=== PATIENT | female | born 1940 | race Caucasian/White ===

== ENCOUNTER → 2020-08-15 | Outpatient (CLI) | payer MEDICARE, BC ==
[~2020-08-15] MED LIST: ASPI-630 PO; CHOL500045 PO; CYAN100016 SL; LISI2.5T PO; NIAC500C PO
--- NOTE | 2020-08-15 14:17 | RAD ---
Examination: 1. Bilateral AP standing knees. 2. Right knee lateral and sunrise views. INDICATION: Right knee pain COMPARISON: None. FINDINGS: AP standing bilateral knees shows no fracture or malalignment. The lateral and sunrise views of the right knee show osteophytic spurring of the superior pole patell a is irregular articular surface on the medial aspect of the patella as well as along the lateral fac et. Osteophytic spurring is notable on the lateral femoral condyle. Soft tissues show chondrocalcinosis in the medial meniscus in the left greater than right knees. IMPRESSION: Degenerative changes in the right knee primarily involving the patellofemoral compartment. No fractur e or aggressive osseous lesion and no malalignment shown. Electronically signed by: Vel Aguero MD (08/15/2020 2:14 PM) [id number]
== END ==
LOC: DXRAD 13:31
PROVIDERS: ATTEND Orthopaedic Surgery
DX: M17.11 Unilateral primary osteoarthritis, right knee (principal)
CPT/HCPCS: 73560; 73565

== ENCOUNTER → 2020-10-21 | Outpatient (CLI) | payer MEDICARE, BC ==
--- NOTE | 2020-10-21 15:29 | RAD ---
EXAM: Bilateral knees, standing view; right knee, lateral view. HISTORY: Pain. COMPARISON: 08/15/2020 FINDINGS: A frontal standing view both knees and lateral view the right knee are obtained. There is a right knee arthroplasty in expected position. There are track davidson due to prior instrumentation wit hin the distal femur and proximal tibia. There is a small right knee effusion. There is minimal right knee soft tissue gas due to relative recent surgery. There is mild left genu valgus. IMPRESSION: Right knee arthroplasty in expected position. Electronically signed by: Leann Ross MD (10/21/2020 3:27 PM) [facility]
== END ==
LOC: DXRAD 12:37
PROVIDERS: ATTEND Physician Assistant
DX: M25.461 Effusion, right knee (principal); M21.062 Valgus deformity, not elsewhere classified, left knee; Z96.651 Presence of right artificial knee joint; Z98.890 Other specified postprocedural states
CPT/HCPCS: 73560; 73565

== ENCOUNTER 2020-10-27 16:36 | Emergency (ER) | payer MEDICARE, BC ==
[~2020-10-27] VITALS: Ht 152.4 cm; Wt 72.0 kg
[2020-10-27 16:36] VITALS: BP 132/79
--- NOTE | 2020-10-27 17:03 | PHYS DOC ---
Past History Past Surgical History: Knee Replacement (RICO JOINER MD) General Adult EDM: Chief Complaint: POST-OP PROBLEM HPI: HPI: 80-year-old female presents with right knee pain. The patient had knee replacement surgery about 2 weeks ago. Over the last 2 days, the swelling has gotten worse and today she has significantly more pain and feels like her calf is firm and much more swollen than that left leg. She is concerned about DVT. She did not call the surgeon's office. Patient denies cough, shortness of breath, dizziness, headache. She is on 2 full-strength aspirin daily, but no other anticoagulant or antiplatelet. (GRETTA MENA DO) Review of Systems: Review of Systems: Constitutional: Denies fever or chills Eyes: Denies change in visual acuity HENT: Denies nasal congestion or sore throat Respiratory: Denies cough or shortness of breath Cardiovascular: Denies chest pain or edema GI: Denies abdominal pain, nausea, vomiting, bloody stools or diarrhea : Denies dysuria Musculoskeletal: Right knee and lower leg pain with swelling Integument: Denies rash Neurologic: Denies headache, focal weakness or sensory changes Endocrine: Denies polyuria or polydipsia Lymphatic: Denies swollen glands Psychiatric: Denies depression or anxiety (GRETTA MENA DO) Allergies: Allergies: Allergies Coded Allergies Type Severity Reaction Last Updated Verified celecoxib Allergy Unknown Hives 05/25/14 Yes codeine Allergy Unknown UPSET STOMACH 05/25/14 Yes (GRETTA MENA DO) Physical Exam: PE: Constitutional: Well developed, well nourished, no acute distress, non-toxic appearance. [] HENT: Normocephalic, atraumatic, bilateral external ears normal, oropharynx moist, no oral exudates, nose normal. [] Eyes: PERRLA, EOMI, conjunctiva normal, no discharge. [] Neck: Normal range of motion, no tenderness, supple, no stridor. [] Cardiovascular: Heart rate regular rhythm, no murmur [] Lungs & Thorax: Bilateral breath sounds clear to auscultation [] Abdomen: Bowel sounds normal, soft, no tenderness, no masses, no pulsatile masses. [] Skin: Warm, dry, no erythema, no rash. [] Back: No tenderness, no CVA tenderness. [] Extremities: Right calf increased firmness in diameter compared to left, knee replacement surgical scar peers to be healing well, covered with Steri-Strips. Range of motion deferred. Tenderness to palpation of the posterior knee and calf. [] Neurologic: Alert and oriented X 3, normal motor function, normal sensory function, no focal deficits noted. [] Psychologic: Affect normal, judgement normal, mood normal. [] (GRETTA MENA DO) EKG: EKG: [] (GRETTA MENA DO) Radiology/Procedures: Radiology/Procedures: [] (GRETTA MENA DO) Radiology/Procedures: [address] [id number] IMAGING REPORT Signed PATIENT: CAMRYN KAUR EACCOUNT: [id number] : 1940 LOCATION: ER AGE: 80 SEX: F EXAM STATUS: REG ER ORD. PHYSICIAN: GRETTA MENA DO REASON: recent knee surgery, calf swelling, pain PROCEDURE: VENOUS LOWER EXTREMITY RIGHT Right lower extremity venous duplex Doppler ultrasound HISTORY: Recent knee surgery, right calf swelling and pain. FINDINGS: No DVT of the right common femoral vein, profunda femoral vein, superficial femoral vein or popliteal vein. There is noncompressible occlusive thrombus of the right posterior tibial peroneal veins in the calf. IMPRESSION: Occlusive DVT of segments of the posterior tibial and peroneal veins in the calf. FOR INTERNAL CODING PURPOSES Critical result: Findings discussed with Dr. Joiner at 10/27/2020 6:06 PM. RESULT CODE: (C) Electronically signed by: Yair Horta MD (10/27/2020 6:08 PM) [id number] DICTATED AND SIGNED BY: YAIR HORTA MD DATE: 10/27/201804 CC: GRETTA MENA DO; RICO JOINER MD; [facility] ~MTH0 0 (RICO JOINER MD) Heart Score: C/O Chest Pain: No Risk Factors: Risk Factors: DM, Current or recent (<one month) smoker, HTN, HLP, family history of CAD, obesity. Risk Scores: Score 0 - 3: 2.5% MACE over next 6 weeks - Discharge Home Score 4 - 6: 20.3% MACE over next 6 weeks - Admit for Clinical Observation Score 7 - 10: 72.7% MACE over next 6 weeks - Early Invasive Strategies (GRETTA MENA DO) Course & Med Decision Making: Course & Med Decision Making Pertinent Labs and Imaging studies reviewed. (See chart for details) The patient's work-up is pending. I am signing the patient out to Dr. Joiner at 1735. [] (GRETTA MENA DO) Course & Med Decision Making See above for details prior shift change with Dr. Mena. Discussed presentation, hx., testing and tx. plan with Dr. Castillo. Start on start on Eliquis. Hold aspirin. Impression: 1. Statis post Rt. knee replacement surgery 2 weeks ago. 2. DVT right calf 3. History of breast cancer-post lumpectomy (RICO JOINER MD) Dragon Disclaimer: Dragjose Disclaimer: This electronic medical record was generated, in whole or in part, using a voice recognition dictation system. (GRETTA MENA DO) Departure Departure: Referrals: [facility] (PCP) Scripts Apixaban (ELIQUIS) 5 Mg Tablet 5 MG PO BID for dvt for 30 Days, #60 TAB Prov: RICO JOINER MD 10/27/20 Apixaban (ELIQUIS) 5 Mg Tablet 10 MG PO BID for dvt for 7 Days, #28 TAB Prov: RICO JOINER MD 10/27/20 GRETTA MENA DO Oct 27, 2020 17:03 RICO JOINER MD Oct 27, 2020 18:16
[2020-10-27 17:55] LABS: BASO # 0.1 x10^3/uL (0.0-0.2); BASO % 1 % (0-3); EOS # 0.4 x10^3/uL (0.0-0.7); EOS % 4 % (0-3); HEMATOCRIT 35.2 % (36.0-47.0); HEMOGLOBIN 11.3 g/dL (12.0-15.5); LYMPH # 0.9 x10^3/uL (1.0-4.8); LYMPH % 10 % (24-48); MEAN CORPUSCULAR HEMOGLOBIN 28 pg (25-35); MEAN CORPUSCULAR HGB CONC 32 g/dL (31-37); MEAN CORPUSCULAR VOLUME 87 fL (79-100); MONO # 0.7 x10^3/uL (0.0-1.1); MONO % 7 % (0-9); NEUT % 77 % (31-73); PLATELET COUNT 426 x10^3/uL (140-400); RED BLOOD COUNT 4.07 x10^6/uL (3.50-5.40); RED CELL DISTRIBUTION WIDTH 14.8 % (11.5-14.5)
[2020-10-27 17:57] LABS: CALCIUM 9.7 mg/dL (8.5-10.1); GFR 53.6; POTASSIUM 4.1 mmol/L (3.5-5.1)
[2020-10-27 18:02] LABS: ALBUMIN 3.5 g/dL (3.4-5.0); ALBUMIN/GLOBULIN RATIO 0.8 (1.0-1.7); TOTAL BILIRUBIN 0.4 mg/dL (0.2-1.0); TOTAL PROTEIN 7.8 g/dL (6.4-8.2)
--- NOTE | 2020-10-27 18:10 | RAD ---
Right lower extremity venous duplex Doppler ultrasound HISTORY: Recent knee surgery, right calf swelling and pain. FINDINGS: No DVT of the right common femoral vein, profunda femoral vein, superficial femoral vein or popliteal vein. There is noncompressible occlusive thrombus of the right posterior tibial peroneal v eins in the calf. IMPRESSION: Occlusive DVT of segments of the posterior tibial and peroneal veins in the calf. FOR INTERNAL CODING PURPOSES Critical result: Findings discussed with Dr. Joiner at 10/27/2020 6:06 PM. RESULT CODE: (C) Electronically signed by: Krishna Horta MD (10/27/2020 6:08 PM) [id number]
[2020-10-27] MEDS ORDERED: APIX5TAB3 PO (18:28)
[2020-10-27] MEDS ORDERED: ENOXAPARIN ** NOTE DOSE ** SYRINGE SQ ONE (18:30)
== END 2020-10-27 18:49 | disposition home or self-care (01) ==
LOC: ER 16:36
DX: I82.461 Acute embolism and thrombosis of right calf muscular vein (principal); Z96.651 Presence of right artificial knee joint; Z85.3 Personal history of malignant neoplasm of breast; Z88.5 Allergy status to narcotic agent; Z88.8 Allergy status to other drugs, medicaments and biological substances
CPT/HCPCS: 36415; 80053; 85025; 85610; 85730; 93971; 96372; 99284; J1650; 99283

== ENCOUNTER → 2021-01-07 | Outpatient (CLI) | payer MEDICARE, BC ==
[~2021-01-07] MED LIST changes: +APIX5TAB3 PO
--- NOTE | 2021-01-07 13:16 | RAD ---
EXAM: DUAL ENERGY X-RAY ABSORPTIOMETRY (DEXA). HISTORY: Postmenopausal screening. FINDINGS: The lowest measured T-score is -2.0 in the right femoral neck, based on a bone mineral dens ity of 0.696 g/cm^2. Refer to the worksheets for full detail. No comparison examinations are available. IMPRESSION: Low bone mass. Bone mineral density yields a T-score between -1.0 and -2.5. Fracture risk is increase d. FRAX was not calculated. METHODOLOGY: Dual energy x-ray absorptiometry was performed to measure bone mineral density. The foll owing analysis is based on the 2019 Official Positions of the International Society for Clinical Dens itometry: Measurements of the hips and the average of L1-L4 are preferred. When the spine and/or hip cannot be feasibly measured or interpreted, or in the setting of hyperparathyroidism, distal radial bone minera l density may be measured. The lumbar spine T-score is based on the average bone mineral density of L1-L4. In the setting of art ifact or anatomic abnormality, some lumbar levels may be excluded, and the remaining levels used for calculation. A single lumbar level is not used for diagnosis, and if only a single level is available for assessment, another anatomic site will be used to assign a diagnosis. The hip T-score is based on the bone mineral density measurement of the femoral neck or total proxima l femur of either side, whichever is lowest. Bilateral mean values are not used for diagnosis. The forearm T-score is derived from 33% of the distal radius of the nondominant forearm. For postmenopausal and perimenopausal women, and men age 50 or older, of all ethnic groups, T-scores are calculated through comparison of the current measurement with the NHANES III database standard fo r females aged 20-29 years. The lowest T-score of the evaluated anatomic sites is used to a ssign a diagnosis based on the World Health Organization densitometric classification. In premenopausal females and males younger than age 50, a Z-score is calculated based on population s pecific reference data for patient sex and self-reported ethnicity. Electronically signed by: Benny Ordoñez MD (01/07/2021 1:13 PM) [id number]
== END ==
LOC: DXRAD 11:33
PROVIDERS: ATTEND Internal Medicine Hematology & Oncology
DX: Z13.820 Encounter for screening for osteoporosis (principal); C50.212 Malignant neoplasm of upper-inner quadrant of left female breast; Z78.0 Asymptomatic menopausal state
CPT/HCPCS: 77080

== ENCOUNTER → 2021-01-24 | Outpatient (CLI) | payer MEDICARE, BC ==
--- NOTE | 2021-01-24 10:35 | RAD ---
EXAMINATION: US DPLX VENOUS EXTREMITY LOWER RT (LOWER EXTREMITY VENOUS ULTRASOUND) CLINICAL HISTORY: Follow-up DVT right calf TECHNIQUE: Sonographic grayscale images obtained of the right lower extremity deep venous system with color flow Doppler, compression, and augmentation techniques as indicated. Images obtained and stor ed in a permanent archive. COMPARISON: 10/27/2020 FINDINGS: No evidence of absent flow or incompressibility within the common femoral vein, femoral vein, or popl iteal vein. Visualized calf veins appear patent on limited evaluation. IMPRESSION: Interval resolution of right lower leg thrombi with no evidence of right lower extremity DVT. Electronically signed by: Junior Ghosh DO (01/24/2021 10:33 AM) [id number]
== END ==
LOC: US 09:52
PROVIDERS: ATTEND Physician Assistant
DX: M25.561 Pain in right knee (principal)
CPT/HCPCS: 93971